=== PATIENT | female | born 1955 | race Caucasian/White ===

== ENCOUNTER 2018-05-28 11:48 | Emergency (ER) | payer BC, OTHER ==
[2018-05-28] MEDS ORDERED: Sodium Chloride 0.9% 10 ML Syringe FLUSH PRN (11:58)
[2018-05-28] MEDS ORDERED: diphenhydrAMINE 50 MG/ML SDV IVPUSH ONE (11:58)
[2018-05-28] MEDS ORDERED: methylPREDNISolone Sodium Succinate 125 MG/2 ML SDV IVPUSH ONE (11:59)
[2018-05-28] MEDS ORDERED: EPINEPHrine 1 MG/ML SDV IM ONE (11:59)
[2018-05-28] MEDS ORDERED: Famotidine 20 MG/2 ML SDV IVPUSH ONE (11:59)
[2018-05-28] MEDS ORDERED: Sodium Chloride 0.9% 1,000 ML IV SCH (12:00)
--- NOTE | 2018-05-28 12:03 | EDM.PDOC ---
ED HPI GENERAL MEDICAL PROBLEM - General Stated Complaint: BEE STING Time Seen by Provider: 05/28/18 11:50 Source of Information: Reports: Patient History Limitations: Reports: No Limitations - History of Present Illness INITIAL COMMENTS - FREE TEXT/NARRATIVE: Melinda is a 63-year-old female who presents to the emergency department today with upper lip swelling after being stung by a bee. Patient reports that approximately 20 bees swarmed out of a birdhouse and at least one stung her in her upper lip. Patient does have a bee allergy but does not have her EpiPen with her today. Patient denies any trouble swallowing or difficulty breathing on arrival here. Onset: Today, Sudden - Related Data Allergies Allergy/AdvReac Type Severity Reaction Status Date / Time No Known Allergies Allergy Verified 05/28/18 12:04 ED ROS ALLERGIC REACTION - Review of Systems Review Of Systems: ROS reveals no pertinent complaints other than HPI. ED EXAM GENERAL NO PERIP PULSE - Physical Exam Exam: See Below Exam Limited By: No Limitations General Appearance: Alert, WD/WN, Anxious Eye Exam: Bilateral Eye: EOMI, PERRL Ears: Normal External Exam Nose: Normal Inspection, Normal Mucosa Throat/Mouth: Normal Oropharynx, No Airway Compromise, Other (Upper lip is significantly swollen, no swelling noted to posterior oropharynx. No tongue swelling appreciated.) Head: Atraumatic Neck: Normal Inspection, Supple, Non-Tender Respiratory/Chest: No Respiratory Distress, Lungs Clear, Normal Breath Sounds Cardiovascular: Regular Rate, Rhythm, No Murmur GI/Abdominal: Normal Bowel Sounds, Soft, Non-Tender Extremities: Normal Inspection Neurological: Alert, Oriented, CN II-XII Intact Psychiatric: Anxious Skin Exam: Warm, Dry, Intact, Other (Stinger was removed from upper lip) Lymphatic: No Adenopathy Course - Vital Signs Text/Narrative:: Melinda is a 63-year-old female who presents to the emergency department today after being stung in the upper lip by a bee. 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 Patient given 0.3 mg IM epinephrine immediately on arrival. Peripheral IV was established, patient given IV Benadryl, Solu-Medrol, Pepcid. 1440-patient is feeling much better here, she's had no return of her lip swelling or other allergic reaction symptoms and has been monitored here just 3 hours. I feel at this time patient is stable to be discharged home. A prescription for EpiPen's was given to patient at time of discharge. Reasons to return to the emergency department were discussed in detail, patient is agreeable to plan of care and was discharged in stable condition with her daughter driving. Last Recorded V/S: Last Vital Signs Temp 36.9 C 05/28/18 12:03 Pulse 99 05/28/18 12:03 Resp 18 05/28/18 12:03 BP 173/109 H 05/28/18 12:03 Pulse Ox 97 05/28/18 12:03 - Orders/Labs/Meds Orders: Active Orders 24 hr Category Date Time Status Peripheral IV Care [RC] . DIRECTED Care 05/28/18 11:58 Active Sodium Chloride 0.9% [Normal Saline] 1,000 ml Med 05/28/18 12:00 Active IV ASDIRECTED Sodium Chloride 0.9% [Saline Flush] Med 05/28/18 11:58 Active 10 ml FLUSH ASDIRECTED PRN Peripheral IV Insertion Adult [OM.PC] Routine Oth 05/28/18 11:58 Ordered Medication Orders Sodium Chloride (Normal Saline) 1,000 mls @ 999 mls/hr IV ASDIRECTED CARMEN Last Admin: 05/28/18 12:09 Dose: 999 mls/hr Sodium Chloride (Saline Flush) 10 ml FLUSH ASDIRECTED PRN PRN Reason: Keep Vein Open Meds: Medications Generic Name Dose Route Start Last Admin Trade Name Freq PRN Reason Stop Dose Admin Sodium Chloride 1,000 mls @ 999 mls/hr 05/28/18 12:00 05/28/18 12:09 Normal Saline IV 999 mls/hr ASDIRECTED CARMEN Administration Sodium Chloride 10 ml 05/28/18 11:58 Saline Flush FLUSH ASDIRECTED PRN Keep Vein Open Discontinued Medications Generic Name Dose Route Start Last Admin Trade Name Freq PRN Reason Stop Dose Admin Diphenhydramine HCl 50 mg 05/28/18 11:58 05/28/18 12:07 Benadryl IVPUSH 05/28/18 11:59 50 mg ONETIME ONE Administration Epinephrine HCl 0.3 mg 05/28/18 11:59 05/28/18 12:22 Adrenalin IM 05/28/18 12:00 0.3 mg ONETIME ONE Administration Famotidine 20 mg 05/28/18 11:59 05/28/18 12:28 Pepcid IVPUSH 05/28/18 12:00 20 mg ONETIME ONE Administration Methylprednisolone Sodium Succinate 125 mg 05/28/18 11:59 05/28/18 12:11 Solu-Medrol IVPUSH 05/28/18 12:00 125 mg ONETIME ONE Administration Departure - Departure Time of Disposition: 14:45 Disposition: Home, Self-Care 01 Condition: Good Clinical Impression: Allergic reaction to bee sting - Discharge Information Instructions: Anaphylactic Reaction, Adult, [id number] Referrals: PCP,None [Primary Care Provider] - Forms: ED Department Discharge - My Orders Last 24 Hours: My Active Orders 05/28/18 11:58 Peripheral IV Care [RC] . DIRECTED Sodium Chloride 0.9% [Saline Flush] 10 ml FLUSH ASDIRECTED PRN Peripheral IV Insertion Adult [OM.PC] Routine 05/28/18 12:00 Sodium Chloride 0.9% [Normal Saline] 1,000 ml IV ASDIRECTED - Assessment/Plan Last 24 Hours: My Active Orders 05/28/18 11:58 Peripheral IV Care [RC] . DIRECTED Sodium Chloride 0.9% [Saline Flush] 10 ml FLUSH ASDIRECTED PRN Peripheral IV Insertion Adult [OM.PC] Routine 05/28/18 12:00 Sodium Chloride 0.9% [Normal Saline] 1,000 ml IV ASDIRECTED
== END 2018-05-28 16:00 | disposition home or self-care (01) ==
LOC: JP.ED 11:48
DX: T63.441A Toxic effect of venom of bees, accidental (unintentional), initial encounter (principal); R22.0 Localized swelling, mass and lump, head
CPT/HCPCS: 96361; 96372; 96374; 96375; 99283; J0171; J1200; J2930; J7030; S0028

== ENCOUNTER 2024-06-28 11:43 | Emergency (ER) | payer MEDICARE, OTHER | END 2024-06-28 12:48 | disposition home or self-care (01) | LOC: JP.ED 11:43 | DX: T63.441A Toxic effect of venom of bees, accidental (unintentional), initial encounter (principal); E11.9 Type 2 diabetes mellitus without complications; Z90.710 Acquired absence of both cervix and uterus; Z79.84 Long term (current) use of oral hypoglycemic drugs; Z86.16 Personal history of COVID-19; Z91.030 Bee allergy status | CPT/HCPCS: 99284 ==

== ENCOUNTER 2025-07-30 09:14 | Emergency (ER) | payer MEDICARE, OTHER | END 2025-07-30 13:10 | disposition home or self-care (01) | LOC: JP.ED 09:14 | DX: S80.12XA Contusion of left lower leg, initial encounter (principal); S40.212A Abrasion of left shoulder, initial encounter; E11.9 Type 2 diabetes mellitus without complications; Z91.030 Bee allergy status; Z79.890 Hormone replacement therapy; Z79.84 Long term (current) use of oral hypoglycemic drugs; Z79.899 Other long term (current) drug therapy; Z86.16 Personal history of COVID-19; W10.8XXA Fall (on) (from) other stairs and steps, initial encounter; Y93.89 Activity, other specified | CPT/HCPCS: 73030; 73590; 99283; A9270 ==